=== PATIENT | male | born 1970 | race Hispanic/Latino ===

== ENCOUNTER 2022-09-24 09:32 | Emergency (ER) | payer OTHER, MEDICAID ==
[~2022-09-24] VITALS: Ht 172.7 cm; Wt 77.1 kg
--- OUTSIDE RECORDS SUMMARY | 2022-09-24 12:36 | XMS ---
PreManage Notification: HERNANDEZ MCCABE [employer] Events No recent Security Events currently on file CRITERIA MET - [facility] - 3 Facilities in 90 Days - [facility] - 2 Visits in 30 Days CARE PROVIDERS [facility]: [phone] Gladis has no Care Guidelines for this patient. Judy VISIT COUNT (12 MO.) 1 [facility] 1 [facility] 1 [facility] TOTAL 3 NOTE: Visits indicate total known visits. ED/UCC VISIT TRACKING (12 MO.) 09/24/2022 09:36 [facility] TYPE: Emergency COMPLAINT: - PAIN FROM INJUR[facility] DIAGNOSES: - Contusion of other part of head, subsequent encounter - Laceration without foreign body of other part of head, subsequent encounter - lip injury - Lip Swelling 09/23/2022 20:29 [facility] TYPE: Emergency COMPLAINT: - fall INPATIENT VISIT TRACKING (12 MO.) No inpatient visits to display in this time frame [email or web address]
[2022-09-24] MEDS ORDERED: ATIVAN0.5 MG PO (15:57)
[2022-09-24] MEDS ORDERED: ATENOLOL25 MG PO (15:57)
[2022-09-24 16:14] VITALS: BP 143/99
== END 2022-09-24 16:15 | disposition home or self-care (01) ==
LOC: ED 09:32
DX: F10.939 Alcohol use, unspecified with withdrawal, unspecified (principal); S00.531A Contusion of lip, initial encounter; W18.30XA Fall on same level, unspecified, initial encounter
CPT/HCPCS: 36415; 80053; 85025; 85060; 85610; G0480; J2060; J2560; J3411; J3430; J7030